=== PATIENT | female | born 1930 | race Caucasian/White ===

== ENCOUNTER 2017-07-24 14:43 | Emergency (ER) | payer MEDICARE, OTHER ==
[~2017-07-24] VITALS: Ht 162.6 cm; Wt 51.0 kg
[~2017-07-24 14:43] MED LIST: ATEN25TA PO; BUDE10.22 INH; CALC1CAP8 PO; CHOL100012 PO; DABI75CA3 PO; DENO60DI; DIGO125T PO; FOLI-17 PO; FURO20TA3 PO; HYDR500C3 PO; INFL100V; LEVO50TA5 PO; MECL25TA4 PO; METH2.5T PO; METO25TA35 PO; MULT-224 PO; POTA10TA5 PO; VIT1TABL32 PO
[2017-07-24] MEDS ORDERED: SODIUM CHLORIDE FLUSH 10ML SYR IVF ONE (15:00)
[2017-07-24] MEDS ORDERED: DILTIAZEM 5 MG/ML, 5ML ONE (15:18)
[2017-07-24 15:22] LABS: MEAN CORPUSCULAR HEMOGLOBIN 37.1 pg (27.0-34.8); MEAN CORPUSCULAR HGB CONC 33.5 g/dL (32.4-35.8); MEAN CORPUSCULAR VOLUME 110.9 fL (80-100); MEAN PLATELET VOLUME 7.2 fL (7.4-10.4); PLATELET COUNT 331 x10^3/uL (130-400)
[2017-07-24 15:31] LABS: ALANINE AMINOTRANSFERASE 28 U/L (12-78); ANION GAP 6 mmol/L (5-15); CALCIUM 8.5 mg/dL (8.5-10.1); CHLORIDE 98 mmol/L (98-107)
[2017-07-24 15:36] LABS: INTERNATIONAL NORMALIZED RATIO 1.2 (0.93-1.1); PROTHROMBIN TIME 12.4 Seconds (9.6-11.5)
[2017-07-24 15:42] LABS: ALKALINE PHOSPHATASE 81 U/L (45-117); BILIRUBIN,TOTAL 0.6 mg/dL (0.2-1.0); CREATININE 0.64 mg/dL (0.55-1.02); FREE T4 (FREE THYROXINE) 1.56 ng/dL (0.76-1.46); TOTAL PROTEIN 7.4 g/dL (6.4-8.2)
[2017-07-24 15:49] LABS: MD YES
[2017-07-24 15:52] LABS: BAND#(MANUAL) 0.31 x10^3/uL; BANDS%(MANUAL) 6 % (0-7); EOS#(MANUAL) 0.05 x10^3/uL (0.0-0.4); EOS% (MANUAL) 1 % (1-7); LYMPH#(MANUAL) 0.87 x10^3/uL (1-3.4); LYMPHS% (MANUAL) 17 % (22-44); MONOS#(MANUAL) 0.61 x10^3/uL (0.3-2.7); MONOS% (MANUAL) 12 % (2-9); SEG#(MANUAL) 3.26 x10^3/uL (1.8-6.8); SEGS% (MANUAL) 64 % (42-75)
[2017-07-24 15:53] LABS: <PLATELET ESTIMATE> ADEQUATE; <PLT MORPHOLOGY> NORMAL PLT MORPH; ANISOCYTOSIS 1+
[2017-07-24] MEDS ORDERED: DILTIAZEM 5 MG/ML, 5ML IVPush ONE (16:00)
[2017-07-24 16:09] LABS: TROPONIN I < 0.015 ng/mL (0.000-0.045)
[2017-07-24] MEDS ORDERED: METOPROLOL TARTRATE 50 MG TABLET ONE (16:52)
[2017-07-24] MEDS ORDERED: METOPROLOL TARTRATE 50 MG TABLET PO ONE (17:00)
[2017-07-24 18:47] VITALS: BP 119/72
[2017-07-26] MEDS ORDERED: LISI2.5T PO (14:39)
[2017-07-28] MEDS ORDERED: METO25TA35 PO (12:19)
[2017-07-28] MEDS ORDERED: DILT120C9 PO (12:19)
[2017-07-28] MEDS ORDERED: BUDE10.2 INH (12:19)
== END 2017-07-24 19:28 | disposition home or self-care (01) ==
LOC: ED 18:23
DX: I48.2 Chronic atrial fibrillation (principal); J44.9 Chronic obstructive pulmonary disease, unspecified; M06.9 Rheumatoid arthritis, unspecified; M85.80 Other specified disorders of bone density and structure, unspecified site; I48.92 Unspecified atrial flutter; I50.9 Heart failure, unspecified; Z86.79 Personal history of other diseases of the circulatory system; Z85.3 Personal history of malignant neoplasm of breast
CPT/HCPCS: 36415; 71045; 80053; 80162; 83735; 83880; 84439; 84443; 84484; 85025; 85610; 85730; 93005; 96374

== ENCOUNTER → 2018-07-25 | Outpatient (CLI) | payer MEDICARE, OTHER ==
[~2018-07-25] MED LIST changes: +BUDE10.2 INH; +DILT120C9 PO; +LISI2.5T PO; -MULT-224 PO; +MULT-642 PO
== END | disposition home or self-care (01) ==
LOC: WOUND 09:12
PROVIDERS: ATTEND Family Medicine
DX: I87.312 Chronic venous hypertension (idiopathic) with ulcer of left lower extremity (principal); L97.822 Non-pressure chronic ulcer of other part of left lower leg with fat layer exposed; I87.2 Venous insufficiency (chronic) (peripheral); L03.116 Cellulitis of left lower limb; D03.72 Melanoma in situ of left lower limb, including hip; M06.9 Rheumatoid arthritis, unspecified; E03.9 Hypothyroidism, unspecified; I48.91 Unspecified atrial fibrillation; J44.9 Chronic obstructive pulmonary disease, unspecified; M85.80 Other specified disorders of bone density and structure, unspecified site; Z87.891 Personal history of nicotine dependence; Z95.0 Presence of cardiac pacemaker; Z90.710 Acquired absence of both cervix and uterus; Z85.3 Personal history of malignant neoplasm of breast; Z85.828 Personal history of other malignant neoplasm of skin
CPT/HCPCS: 11042; G0463

== ENCOUNTER → 2018-08-01 | Outpatient (CLI) | payer MEDICARE, OTHER | END | disposition home or self-care (01) | LOC: WOUND 11:10 | PROVIDERS: ATTEND Family Medicine | DX: I87.312 Chronic venous hypertension (idiopathic) with ulcer of left lower extremity (principal); L97.525 Non-pressure chronic ulcer of other part of left foot with muscle involvement without evidence of necrosis; L03.116 Cellulitis of left lower limb; M05.679 Rheumatoid arthritis of unspecified ankle and foot with involvement of other organs and systems; D03.72 Melanoma in situ of left lower limb, including hip; E03.9 Hypothyroidism, unspecified; I48.91 Unspecified atrial fibrillation; J44.9 Chronic obstructive pulmonary disease, unspecified; M85.80 Other specified disorders of bone density and structure, unspecified site; Z85.828 Personal history of other malignant neoplasm of skin; Z85.3 Personal history of malignant neoplasm of breast; Z87.891 Personal history of nicotine dependence | CPT/HCPCS: 11043 ==

== ENCOUNTER 2018-10-09 09:34 | Day surgery (SDC) | payer MEDICARE, OTHER ==
[~2018-10-09] VITALS: Ht 162.6 cm; Wt 46.4 kg
[2018-10-09] MEDS ORDERED: DAPTOMYCIN 300 MG in SODIUM CHLORIDE 0.9% 100 ML IV STA (10:19)
[2018-10-09 10:25] VITALS: BP 133/82
[2018-10-09] MEDS ORDERED: SODIUM CHLORIDE 0.9% 1,000 ML IV SCH (10:27)
[2018-10-09] MEDS ORDERED: CEFTRIAXONE PMX 1GM/50ML 50 ML IV ONE (10:30)
[2018-10-09] MEDS ORDERED: CEFAZOLIN PMX 1GM/50ML 50 ML IVPB ONE (10:30)
[2018-10-09] MEDS ORDERED: FURO20TA3 PO (10:54)
[2018-10-09] MEDS ORDERED: LIDOCAINE 1%, 20ML ONE (11:36)
[2018-10-09] MEDS ORDERED: MIDAZOLAM 1 MG/ML, 2ML ONE (11:36)
[2018-10-09] MEDS ORDERED: FENTANYL PF 100 MCG/2ML ONE (11:36)
[2018-10-09] MEDS ORDERED: CEFAZOLIN PMX 1GM/50ML 0 ML ONE (11:36)
[2018-10-09] MEDS ORDERED: CEFAZOLIN 1,000 MG ONE (11:37)
[2018-10-09] MEDS ORDERED: HOLD MEDICATION MC PRN (13:00)
[2018-10-09] MEDS ORDERED: HYDROcodone/APAP 5/325 TABLET PO PRN (13:00)
[2018-10-09] MEDS ORDERED: SODIUM CHLORIDE FLUSH 10ML SYR IVF SCH (21:00)
== END 2018-10-09 14:41 | disposition home or self-care (01) ==
LOC: CACL 09:34
PROVIDERS: ATTEND Internal Medicine Cardiovascular Disease
DX: Z45.010 Encounter for checking and testing of cardiac pacemaker pulse generator [battery] (principal); I48.2 Chronic atrial fibrillation; J44.9 Chronic obstructive pulmonary disease, unspecified; I42.9 Cardiomyopathy, unspecified; M05.9 Rheumatoid arthritis with rheumatoid factor, unspecified; Z79.890 Hormone replacement therapy; Z79.899 Other long term (current) drug therapy; Z90.12 Acquired absence of left breast and nipple; Z85.3 Personal history of malignant neoplasm of breast; Z87.891 Personal history of nicotine dependence
CPT/HCPCS: 33227; 71046; 93005; 99156; 99157; C1786; J0690; J0696; J0878; J2250; J3010; 33228; C1785

== ENCOUNTER 2019-03-05 14:53 | Outpatient (CLI) | payer MEDICARE, OTHER ==
[~2019-03-05 14:53] MED LIST changes: +DILT120C48 PO; -DILT120C9 PO
== END 2019-03-05 23:59 | disposition home or self-care (01) ==
LOC: RAD 14:53
PROVIDERS: ATTEND Family Medicine
DX: M79.604 Pain in right leg (principal); R60.0 Localized edema

== ENCOUNTER → 2019-04-06 | Outpatient (CLI) | payer MEDICARE, OTHER | END | disposition home or self-care (01) | LOC: RAD 12:28 | PROVIDERS: ATTEND Internal Medicine | DX: J98.4 Other disorders of lung (principal); Z90.12 Acquired absence of left breast and nipple; Z95.0 Presence of cardiac pacemaker; Z87.891 Personal history of nicotine dependence | CPT/HCPCS: 71046 ==

== ENCOUNTER → 2020-01-06 | Outpatient (CLI) | payer MEDICARE, OTHER ==
[~2020-01-06] MED LIST changes: -DIGO125T PO; +DIGO125T85 PO; +MECL-101 PO; -MECL25TA4 PO
== END | disposition home or self-care (01) ==
LOC: CFH 09:52
PROVIDERS: ATTEND Internal Medicine Cardiovascular Disease
DX: I08.8 Other rheumatic multiple valve diseases (principal); I42.9 Cardiomyopathy, unspecified
CPT/HCPCS: 93306